=== PATIENT | female | born 1980 | race Caucasian/White ===

== ENCOUNTER 2016-12-15 03:57 | Emergency (ER) | payer OTHER ==
[~2016-12-15] VITALS: Ht 177.8 cm; Wt 97.5 kg
--- NOTE | 2016-12-15 04:15 | NUR ---
TO BED 2 AMBULATORY C/O FRONTAL HEADACHE RADIATING TO OCCIPITAL HEAD. PT AAOX4 NO ACUTE DISTRESS NOTED, RESP EVEN AND UNLABORED. 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 PENDING ER MD CORMIER.
--- NOTE | 2016-12-15 04:27 | NUR ---
MAYA FOUNTAIN AT BEDSIDE TO GENIA BOWER.
--- NOTE | 2016-12-15 04:46 | NUR ---
PT REFUSE IV AND IV MEDS. 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 ER MADE AWARE.
--- NOTE | 2016-12-15 04:59 | NUR ---
Patient discharged to home in stable condition. Written and verbal after care instructions given. Patient verbalizes understanding of instruction.
[2016-12-15 05:00] VITALS: BP 132/76
[2016-12-15] MEDS ORDERED: METOCLOPRAMIDE HCL 10 MG/2 ML VIAL IV ONE (05:00)
[2016-12-15] MEDS ORDERED: diphenhydrAMINE HCL 50 MG/ML VIAL IV ONE (05:00)
== END 2016-12-15 05:00 | disposition home or self-care (01) ==
LOC: ER 04:01
DX: G43.909 Migraine, unspecified, not intractable, without status migrainosus (principal); E78.00 Pure hypercholesterolemia, unspecified; Z88.0 Allergy status to penicillin
CPT/HCPCS: 99281; A4606; Z7610; Z7502

== ENCOUNTER 2018-11-18 00:10 | Emergency (ER) | payer BC, OTHER ==
[~2018-11-18] VITALS: Ht 177.8 cm; Wt 95.3 kg
--- NOTE | 2018-11-18 00:55 | NUR ---
PT BIBS. C/O "HAD A HIGH BP OF 171-101 AT HOME." -N/V -DIZZY -ACUTE DISTRESS AT THIS TIME. PT ON MONITOR.
[2018-11-18] MEDS ORDERED: ACETAMINOPHEN 325 MG TABLET PO ONE (02:00)
[2018-11-18] MEDS ORDERED: hydrALAZINE HCL IV 20 MG VIAL IV ONE (02:00)
[2018-11-18 02:05] LABS: BASOPHILS % (AUTO) 0.7 % (0.0-2.0); EOSINOPHILS % (AUTO) 5.9 % (0.0-6.0); HEMATOCRIT 35 % (33-45); HEMOGLOBIN 11.8 g/dL (11.5-14.8); LYMPHOCYTES # (AUTO) 2.3 /CMM (0.8-4.8); LYMPHOCYTES % (AUTO) 36.2 % (20.0-44.0); MEAN CORPUSCULAR HGB CONC 34 g/dl (31.0-36.0); MEAN CORPUSCULAR VOLUME 87 fL (82-100); MONOCYTES # (AUTO) 0.4 /CMM (0.1-1.30); MONOCYTES % (AUTO) 5.8 % (2.0-12.0); NEUTROPHILS # (AUTO) 3.2 /CMM (1.8-8.9); NEUTROPHILS % (AUTO) 51.4 % (43.0-81.0); PLATELET COUNT (AUTO) 305 /CMM (150-450); RED BLOOD CELL COUNT(AUTO) 4.03 MIL/uL (4.0-5.2); WHITE BLOOD COUNT (AUTO) 6.2 K/uL (4.3-11.0)
[2018-11-18] MEDS ORDERED: ACETAMINOPHEN 325 MG TABLET ONE (02:10)
[2018-11-18] MEDS ORDERED: hydrALAZINE HCL IV 20 MG VIAL ONE (02:10)
[2018-11-18 02:12] LABS: CALCIUM, SERUM 9.2 mg/dL (8.5-10.1); CREATININE 0.7 mg/dL (0.6-1.3); POTASSIUM 3.7 mmol/L (3.5-5.1)
[2018-11-18 02:18] LABS: ALBUMIN 3.3 g/dL (3.4-5.0); BILIRUBIN,DIRECT 0.1 mg/dL (0.0-0.2); BILIRUBIN,TOTAL 0.2 mg/dL (0.2-1.0); TOTAL PROTEIN, SERUM 6.8 g/dL (6.4-8.2)
--- NOTE | 2018-11-18 02:55 | NUR ---
LEFT MSG FOR ALIGNER BARREL AND RECEIVER DR CLAIRE FOR DR KHOURY REGARDING CONSULT FOR THIS PATIENT. [phone]
[2018-11-18] MEDS ORDERED: LABETALOL HCL (100MG) 100 MG TABLET PO ONE (03:30)
[2018-11-18] MEDS ORDERED: LABETALOL HCL (100MG) 100 MG TABLET ONE (03:35)
[2018-11-18 03:40] LABS: APPEARANCE,URINE CLEAR (CLEAR); BILIRUBIN,URINE NEGATIVE (NEGATIVE); BLOOD, URINE NEGATIVE Ery/uL (NEGATIVE); COLOR,URINE YELLOW (YELLOW); KETONES,URINE NEGATIVE (NEGATIVE); LEUKOCYTE ESTERASE ,URINE NEGATIVE (NEGATIVE); NITRITE, URINE NEGATIVE (NEGATIVE); PH,URINE 6.5 (5.0-8.0); PROTEIN,URINE NEGATIVE (NEGATIVE); UGLUCOSE NEGATIVE (NEGATIVE); UROBILINOGEN,URINE 0.2 EU/dL (0.2)
[2018-11-18 04:07] VITALS: BP 141/68
== END 2018-11-18 04:07 | disposition home or self-care (01) ==
LOC: ER 00:14
DX: O13.5 Gestational [pregnancy-induced] hypertension without significant proteinuria, complicating the puerperium (principal); G43.909 Migraine, unspecified, not intractable, without status migrainosus; E78.00 Pure hypercholesterolemia, unspecified; Z98.890 Other specified postprocedural states; Z88.1 Allergy status to other antibiotic agents
CPT/HCPCS: 36415; 80048; 80076; 81001; 85025; 96374; 99283; A4606; J0360; 81000-TC

== ENCOUNTER 2024-06-20 09:55 | Emergency (ER) | payer BC ==
[~2024-06-20] VITALS: Ht 177.8 cm; Wt 81.6 kg
[2024-06-20 10:10] VITALS: TEMP 98.6
[2024-06-20] MEDS ORDERED: KETOROLAC TROMETHAMINE INJ 30 MG/ML VIAL ONE (10:18)
[2024-06-20] MEDS ORDERED: METOCLOPRAMIDE HCL 10 MG/2 ML VIAL ONE (10:18)
[2024-06-20] MEDS ORDERED: diphenhydrAMINE HCL 50 MG/ML VIAL ONE (10:18)
[2024-06-20] MEDS: IV NS 0.9% 1,000 ML BAG IV ONE (10:25)
[2024-06-20] MEDS: KETOROLAC TROMETHAMINE INJ 30 MG/ML VIAL IV ONE (10:25)
[2024-06-20] MEDS: diphenhydrAMINE HCL 50 MG/ML VIAL IV ONE (10:30)
[2024-06-20] MEDS: METOCLOPRAMIDE HCL 10 MG/2 ML VIAL IV ONE (10:35)
[2024-06-20 13:57] VITALS: BP 121/88; O2SAT 99
== END 2024-06-20 12:00 | disposition home or self-care (01) ==
LOC: ER 10:04
DX: G43.909 Migraine, unspecified, not intractable, without status migrainosus (principal); I10 Essential (primary) hypertension; R11.0 Nausea; F41.9 Anxiety disorder, unspecified; E78.00 Pure hypercholesterolemia, unspecified; Z88.0 Allergy status to penicillin
CPT/HCPCS: 99284; 96374; 96375; 96361; J1200; J2765; J1885; J7030 ×2

== ENCOUNTER 2024-07-31 07:06 | Emergency (ER) | payer BC ==
[~2024-07-31] VITALS: Ht 177.8 cm; Wt 79.4 kg
[2024-07-31] MEDS ORDERED: METOCLOPRAMIDE HCL 10 MG/2 ML VIAL ONE (08:02)
[2024-07-31] MEDS ORDERED: diphenhydrAMINE HCL 50 MG/ML VIAL ONE (08:02)
[2024-07-31] MEDS ORDERED: dexaMETHasone SOD PHOSPHATE 1 ML ONE (08:02)
[2024-07-31] MEDS ORDERED: ACETAMINOPHEN ES 500 MG TABLET ONE (08:02)
[2024-07-31] MEDS ORDERED: KETOROLAC TROMETHAMINE 15 MG/ML VIAL ONE (08:02)
[2024-07-31] MEDS: diphenhydrAMINE HCL 50 MG/ML VIAL IV ONE (08:04)
[2024-07-31] MEDS: METOCLOPRAMIDE HCL 10 MG/2 ML VIAL IV ONE (08:05)
[2024-07-31] MEDS: dexaMETHasone SOD PHOSPHATE 10 MG/ML VIAL IV ONE (08:05)
[2024-07-31] MEDS: IV NS 0.9% 1,000 ML BAG IV ONE (08:05)
[2024-07-31] MEDS: KETOROLAC TROMETHAMINE 15 MG/ML VIAL IV ONE (08:05)
[2024-07-31] MEDS: ACETAMINOPHEN ES 500 MG TABLET PO ONE (08:05)
[2024-07-31 09:25] VITALS: BP 95/63; TEMP 98.4; O2SAT 98
== END 2024-07-31 09:30 | disposition home or self-care (01) ==
LOC: ER 07:08
DX: G43.909 Migraine, unspecified, not intractable, without status migrainosus (principal); E78.5 Hyperlipidemia, unspecified; I10 Essential (primary) hypertension; Z98.890 Other specified postprocedural states; Z88.0 Allergy status to penicillin
CPT/HCPCS: 99284; 96374; 96375; 96361; J1100; J1200; J2765; J7030; J1885

== ENCOUNTER 2024-10-08 11:17 | Emergency (ER) | payer BC ==
[~2024-10-08] VITALS: Ht 170.2 cm; Wt 72.6 kg
[2024-10-08 11:20] VITALS: BP 120/88; TEMP 98.3; O2SAT 100
[2024-10-08] MEDS ORDERED: ONDANSETRON HCL/PF 4 MG/2 ML VIAL IVP ONE (12:00)
[2024-10-08] MEDS ORDERED: IV NS 0.9% 1,000 ML BAG IV ONE (12:00)
== END 2024-10-08 12:23 | disposition home or self-care (01) ==
LOC: ER 11:30
DX: R10.9 Unspecified abdominal pain (principal); Z53.21 Procedure and treatment not carried out due to patient leaving prior to being seen by health care provider

== ENCOUNTER 2024-12-19 22:34 | Emergency (ER) | payer BC ==
[~2024-12-19] VITALS: Ht 177.8 cm; Wt 72.6 kg
[2024-12-19] MEDS ORDERED: METOCLOPRAMIDE HCL 10 MG/2 ML VIAL ONE (23:01)
[2024-12-19] MEDS ORDERED: SUMATRIPTAN SUCCINATE 6 MG/0.5 ML VIAL SQ ONE (23:01)
[2024-12-19] MEDS: METOCLOPRAMIDE HCL 10 MG/2 ML VIAL IV ONE (23:14)
[2024-12-19] MEDS: SUMATRIPTAN SUCCINATE 6 MG/0.5 ML VIAL SQ ONE (23:14)
[2024-12-19] MEDS: IV NS 0.9% 1,000 ML BAG IV ONE (23:14)
[2024-12-19] MEDS ORDERED: ONDA4TAB5 PO (23:55)
[2024-12-20 00:07] VITALS: BP 136/88; TEMP 97.6; O2SAT 100
== END 2024-12-20 00:07 | disposition home or self-care (01) ==
LOC: ER 22:45
DX: G43.909 Migraine, unspecified, not intractable, without status migrainosus (principal); I10 Essential (primary) hypertension; E78.5 Hyperlipidemia, unspecified; Z88.0 Allergy status to penicillin
CPT/HCPCS: 99284; 96374; 96361; 96372; J3030; J2765; J7030